=== PATIENT | female | born 1995 | race Caucasian/White ===

== ENCOUNTER 2016-09-13 17:30 | Inpatient (IN) | payer MEDICAID ==
[2016-09-13] VITALS (43 sets, daily range): BP systolic 105–123; BP diastolic 66–78; PULSE 64–92; RESP 16–18; TEMP 98; O2SAT 96–100
[~2016-09-13] VITALS: Ht 157.5 cm; Wt 54.9 kg
[~2016-09-13 17:30] MED LIST: ANAP550T PO; PERC5TAB12 PO; PREN0.01 PO; SENN1TAB11 PO
[2016-09-13 18:27] LABS: HEMATOCRIT 34.8 % (35.0-46.0); MEAN CELL VOLUME 86.4 FL (80.0-100.0); MEAN CORPUSCULAR HEMOGLOBIN 28.8 PG (27.0-34.0); MEAN CORPUSCULAR HGB CONC 33.3 % (32.0-36.0); PLATELET COUNT 149 TH/MM3 (150-450); RED BLOOD COUNT 4.03 MIL/MM3 (4.00-5.30); WHITE BLOOD COUNT 10.4 TH/MM3 (4.0-11.0)
[2016-09-13 18:35] LABS: HEMO FLAGS AUTO DIFF
[2016-09-13 18:46] LABS: CHLORIDE 104 MEQ/L (98-107); POTASSIUM 3.7 MEQ/L (3.5-5.1); SODIUM (NA) 138 MEQ/L (136-145)
[2016-09-13 18:49] LABS: ANION GAP 10 MEQ/L (5-15); BICARBONATE 23.6 MEQ/L (21.0-32.0)
[2016-09-13 18:50] LABS: BLOOD UREA NITROGEN 10 MG/DL (7-18)
[2016-09-13 18:52] LABS: ALT (GPT) 10 U/L (10-53)
[2016-09-13 18:53] LABS: AST (GOT) 12 U/L (15-37); GLOMERULAR FILTRATION RATE 140 ML/MIN (>89)
[2016-09-13 18:54] LABS: TOTAL BILIRUBIN ADULT 0.3 MG/DL (0.2-1.0)
[2016-09-13 18:55] LABS: EOSINOPHILS 1 % (0-4); NEUTROPHIL # MANUAL DIFF 7.6 TH/MM3 (1.8-7.7); POLYS (SEG NEUTROPHILS) 73 % (16-70); WBC DIFF SAMPLE 100
--- NOTE | 2016-09-13 18:55 | PD ---
HPI Chief Complaint: Related Problem Time Seen by Provider: 18:03 Travel History International Travel<30 days: No Contact w/Intl Traveler<30days: No Traveled to known affect area: No History of Present Illness HPI Is a 21-year-old woman presents to the emergency department complaining of bright red vaginal bleeding at 33 weeks. She is 4 para 2, 0, 1-1 previous miscarriage and 2 previous C-sections. Her was her distress and failure to descend, and the second one was for just repeat C- section. She is 33 weeks 5 days today, falls with Citlaly Sánchez jig worker. She states she was measuring small but ultrasound confirming normal size and her is been otherwise uncomplicated. They're planning for a C- section at term. She had an appointment today for an ultrasound which she states was unremarkable. She's been feeling the baby move normally. This afternoon she felt some fluid but when she checked she didn't see anything but then when she got home noticed a moderate amount of bright red blood coming from the vagina. She describes then bright red blood. She's had continued bleeding of thin bright red blood. She otherwise has been feeling generally well. No other complaints. History Past Medical History Narrative Medical 2 previous C-sections : 2 Para: 1 Social History Alcohol Use: No Tobacco Use: Yes (/ PPD) Allergies-Medications (Allergen,Severity, Reaction): Coded Allergies: No Known Allergies (Verified , 09/13/16) Reported Meds & Prescriptions Reported Meds & Active Scripts Active No Active Prescriptions or Reported Medications Review of Systems Except as stated in HPI: all other systems reviewed are Neg Physical Exam Narrative GENERAL: Well-appearing 21-year-old young woman. No acute distress. SKIN: Warm and dry. NECK: Trachea midline. No JVD. CARDIOVASCULAR: Regular rate and rhythm. No murmur appreciated. RESPIRATORY: No accessory muscle use. Clear to auscultation. Breath sounds equal bilaterally. GASTROINTESTINAL: Abdomen is soft, gravid, roughly consistent with dates. : Some bright red blood at the vaginal orifice. Speculum or internal exam deferred. MUSCULOSKELETAL: No obvious deformities. No edema. NEUROLOGICAL: Awake and alert. No obvious cranial nerve deficits. Motor grossly within normal limits. Normal speech. Data Data Last Documented VS Vital Signs Date Time Temp Pulse Resp B/P Pulse Ox O2 Delivery O2 Flow Rate FiO2 09/13/16 17:52 98.0 92 16 110/75 99 Orders Complete Blood Count With Diff (09/13/16 18:05) Comprehensive Metabolic Panel (09/13/16 18:05) Type And Screen (09/13/16 18:05) Iv Access Insert/Monitor (09/13/16 18:05) Ed Poc Ultrasound (09/13/16 ) Labs Laboratory Tests Test 09/13/16 18:08 White Blood Count 10.4 TH/MM3 Red Blood Count 4.03 MIL/MM3 Hemoglobin 11.6 GM/DL Hematocrit 34.8 % Mean Corpuscular Volume 86.4 FL Mean Corpuscular Hemoglobin 28.8 PG Mean Corpuscular Hemoglobin 33.3 % Concent Red Cell Distribution Width 12.0 % Platelet Count 149 TH/MM3 Mean Platelet Volume 8.8 FL CBC Comment AUTO DIFF Sodium Level 138 MEQ/L Potassium Level 3.7 MEQ/L Chloride Level 104 MEQ/L Carbon Dioxide Level 23.6 MEQ/L Anion Gap 10 MEQ/L Random Glucose 80 MG/DL Calcium Level 8.9 MG/DL Albumin 3.0 GM/DL [facility] Medical Decision Making Medical Screen Exam Complete: Yes Emergency Medical Condition: Yes Differential Diagnosis Placenta previa, abruption, cervicitis, other Narrative Course Medical decision making 21-year-old woman at 33 weeks 5 days presents with painless vaginal bleeding. No cramping. No leakage of fluid. Still feels baby moving normally. Concern for placenta previa. Internal exam deferred. Ultrasound shows some movement with good heart movement. I spoke with the OB hospitalist, Dr. Wood, who accepted the patient for emergent transfer. Diagnosis Primary Impression: Vaginal bleeding in Qualified Code: O46.93 - Vaginal bleeding in , third trimester Admitting Information Admitting Physician Requests: Admit Scripts No Active Prescriptions or Reported Meds Elia Landers MD Sep 13, 2016 18:55
[2016-09-13 18:56] LABS: ALKALINE PHOSPHATASE 138 U/L (45-117); PLATELET ESTIMATE SMEAR LOW (NORMAL); PLATELET MORPHOLOGY NORMAL (NORMAL); SCAN/DIFF FINAL DIFF MANUAL
[2016-09-13] MEDS ORDERED: LACTATED RINGER'S 1000 ML INJ 1,000 ML IV SCH ×2 (19:33→19:53)
[2016-09-13] MEDS ORDERED: MAGNESIUM SULFATE 40 GM PREMIX 1,000 ML IV SCH (19:53)
[2016-09-13] MEDS ORDERED: ONDANSETRON HCL 4 MG/2 ML VIAL IV PRN (20:00)
[2016-09-13] MEDS ORDERED: SODIUM CHLORIDE 0.9% FLUSH 5 ML FLUSH IV PRN (20:00)
[2016-09-13] MEDS ORDERED: CALCIUM GLUCONATE 10% 1 GM/10 ML VIAL IV PRN (20:00)
[2016-09-13] MEDS ORDERED: BETAMETHASONE SOD PHOS/ACETATE SUSP 30 MG/5 ML VIAL IM SCH (20:00)
[2016-09-13] MEDS ORDERED: MAGNESIUM SULFATE 4 GM PREMIX 100 ML IV ONE (20:00)
--- NOTE | 2016-09-13 20:07 | HHI.HP ---
HPI Chief Complaint Vaginal bleeding Date Seen: Sep 13, 2016 Travel History International Travel<30 Days: No Contact w/Intl Traveler<30Days: No Known Affected Area: No History of Present Illness HPI Patient is a 21-year-old white female previous 2 at 33 weeks seen by Citlaly Sánchez for care. She presents today complaining of vaginal bleeding beyond 5 PM today it's painless. Her baby is active. The bleeding was bright red and more than a period today. She denies rupture the membranes abdominal pain or other complication. Para: 2 : 4 : 1 History Obstetric History Obstetric History 2 C-sections and 1 miscarriage Past Surgical History Narrative Surgical 2 C-sections Family History Family History: Negative Social History Alcohol Use: No Tobacco Use: Yes Substance Abuse: No Allergies-Medications (Allergen,Severity, Reaction): Coded Allergies: No Known Allergies (Verified , 09/13/16) Home Meds Discontinued Reported Medications Oxycodone-Acetaminophen 5-325 mg (Percocet 5-325 mg)5 Mg/325 Mg Tab1 Tab PO Q6H PRN (PAIN) #20 TAB 07/07/13 Docusate Sod/Senna (Senna Plus 8.6-50 mg)1 Tab Tab1 Tab PO BID #30 TAB 07/07/13 Multivit/Min/Fol Ac/Iron/Pren ( Vit ( Plus)) Tab1 Tab PO DAILY CONTINUE WHILE OR PUMPING. IF BOTTLE FEEDING CONTINUE FOR ONE MONTH 07/07/13 Naproxen Sodium (Anaprox Ds)550 Mg [id number] Mg PO BID PRN (PAIN) #30 TAB 07/07/13 Review of Systems General / Constitutional: No: Fever, Weight Gain, Chills, Other Eyes: No: Diploplia, Blurred Vision, Visual changes, Pain, Photophobia HENT: No: Headaches, Vertigo, Lightheadedness Cardiovascular: No: Irregular Rhythm, Chest Pain or Discomfort, Palpitations, Tachycardia, Syncope, Varicosities, Edema, Cyanosis Respiratory: No: Cough, Short of Breath, Other Gastrointestinal: No: Nausea, Vomiting, Diarrhea Genitourinary: Vaginal Bleeding, No: Decreased Urinary Output, Oliguria Musculoskeletal: No: Limited ROM, Weakness, Cramping, Edema, Pain Skin: No Rash, No Itching, No Dryness, No Lumps, No Change in Pigmentation, No Change in Nails, No Alopecia, No Lesions Neurologic: No: Weakness, Dizziness, Syncope, Focal Abnormalities, Coordination Problem, Headache, Slurred Speech, Seizures Psychiatric: No: Depression, Suicidal Ideations, Homicidal Ideation Endocrine: No: Heat Intolerance, Cold Intolerance, Polydipsia, Polyuria, Other Physical Exam Vital Signs Date Time Temp Pulse Resp B/P Pulse Ox O2 Delivery O2 Flow Rate FiO2 09/13/16 18:49 108/75 100 09/13/16 17:52 98.0 92 16 110/75 99 Narrative GENERAL: Well-nourished, well-developed patient. SKIN: Warm and dry. HEAD: Normocephalic and atraumatic. EYES: No scleral icterus. No injection or drainage. ENT: No nasal drainage noted. Mucous membranes pink. Airway patent. NECK: Supple, trachea midline. No JVD. CARDIOVASCULAR: Regular rate and rhythm without murmurs, gallops, or rubs. RESPIRATORY: Breath sounds equal bilaterally. No accessory muscle use. BREASTS: Bilateral exam showed no masses , no retractions, no nipple discharge. ABDOMEN/GI: Abdomen soft, non-tender, bowel sounds present, no rebound, no guarding Gravid to [30-] weeks size Fundal Height: [-30] GENITOURINARY: External Genitalia: intact and normal in appearance, speculum exam was done as the patient's rectus placed in the vagina and opened blood just filled up the Speculum I evacuated that blood and there was still some blood in the posterior fornix cannot visualize the cervix well that time. Did not do a digital exam until until had finished her ultrasound. BUS glands: [-] Cervix: [-] Dilatation: [1-] Effacement: [50-] Station: [-3] Presentation: [vtx-] Membranes: [intact ] Uterine Contractions: [q 2 min-] FHT's: Category: [-1] Baseline: [133-] Reactive: [yes-] Variability: [mod-] Decels: [none-] EXTREMITIES: No cyanosis or edema. BACK: Nontender without obvious deformity. No CVA tenderness. NEUROLOGICAL: Awake and alert. Motor and sensory grossly within normal limits. Five out of 5 muscle strength in all muscle groups. Normal speech. Data Data Orders Complete Blood Count With Diff (09/13/16 18:05) Comprehensive Metabolic Panel (09/13/16 18:05) Type And Screen (09/13/16 18:05) Iv Access Insert/Monitor (09/13/16 18:05) Ed Poc Ultrasound (09/13/16 ) Vital Signs (Adult) .ON ADMISSION (09/13/16 19:33) ^ Labor Status (09/13/16 19:33) Urinalysis - C+S If Indicated (09/13/16 19:33) Cbc No Diff, Includes Plts (09/13/16 19:33) Kleihauer Betke ( Hgb) (09/13/16 19:33) Lactated Ringer's 1000 Ml Inj (Lr 1000 M (09/13/16 19:33) Betamethasone Inj (Celestone Soluspan In (09/13/16 20:00) Ob/Psych Drug Screen, Urine (09/13/16 19:33) Ob Poc Ultrasound (09/13/16 ) Ob (2e) Additional Admit Info (09/13/16 19:54) Admit To Inpatient (09/13/16 ) Vital Signs (Adult) Q4H (09/13/16 19:53) Activity Bed Rest (09/13/16 19:53) Intake + Output MG.QSHIFT (09/13/16 19:53) ^ Heart CONTINUOUS (09/13/16 19:53) Diet Npo (09/14/16 Breakfast) Lactated Ringer's 1000 Ml Inj (Lr 1000 M (09/13/16 19:53) Sodium Chloride 0.9% Flush (Ns Flush) (09/13/16 20:00) Sodium Chloride 0.9% Flush (Ns Flush) (09/13/16 21:00) Magnesium Sulfate 40 Gm Premix (Magnesiu (09/13/16 19:53) Cefazolin Inj (Ancef Inj) (09/13/16 20:00) Calcium Gluconate Inj (Calcium Gluconate (09/13/16 20:00) Ondansetron Inj (Zofran Inj) (09/13/16 20:00) Magnesium Sulfate 4 Gm Premix (Magnesium (09/13/16 20:00) Drug Screen, Random Urine (09/13/16 19:53) Prothrombin Time / Inr (Pt) (09/13/16 19:57) Act Partial Throm Time (Ptt) (09/13/16 19:57) Fibrinogen (09/13/16 19:57) Labs Bedside ultrasound done by me shows a vertex female fetus with normal anatomy estimated weight of 1662 g or 3 lbs. 11 oz. The placenta is anterior and left-sided grade 2 there is no placenta previa, normal amniotic fluid noted, baby is active Laboratory Tests Test 09/13/16 18:08 White Blood Count 10.4 Red Blood Count 4.03 Hemoglobin 11.6 Hematocrit 34.8 Mean Corpuscular Volume 86.4 Mean Corpuscular Hemoglobin 28.8 Mean Corpuscular Hemoglobin 33.3 Concent Red Cell Distribution Width 12.0 Platelet Count 149 Mean Platelet Volume 8.8 CBC Comment AUTO DIFF Differential Total Cells 100 Counted Neutrophils % (Manual) 73 Lymphocytes % 23 Monocytes % 3 Eosinophils % 1 Neutrophils # (Manual) 7.6 Differential Comment FINAL DIFF MANUAL Platelet Estimate LOW Platelet Morphology Comment NORMAL Red Cell Morphology Comment NORMAL Sodium Level 138 Potassium Level 3.7 Chloride Level 104 Carbon Dioxide Level 23.6 Anion Gap 10 Blood Urea Nitrogen 10 Creatinine 0.54 Estimat Glomerular Filtration 140 Rate Random Glucose 80 Calcium Level 8.9 Total Bilirubin 0.3 Aspartate Amino Transf 12 (AST/SGOT) Alanine Aminotransferase 10 (ALT/SGPT) Alkaline Phosphatase 138 Total Protein 6.9 Albumin 3.0 Blood Type O POSITIVE Antibody Screen NEGATIVE Assessment/Plan Assessment and Plan This patient is a 21-year-old white female G3 for P2 previous 2, 33 weeks who presents with red vaginal bleeding. Denies pain or rupture the membranes this time. Baby is active heart rate tracing is reactive and she is prema every 1-2 minutes. Speculum exam the vagina was full of dark red blood area and ultrasound was done prior to digital exam which shows a female fetus in vertex presentation at 1662 g or 3 lbs. 11 oz. and a day gestational age of 31 weeks and 5 day size. After confirming she had no previous exams cervical exam was not she is using cervix is 1 cm 50% and -3 vertex. Plan to admit the patient and the attempt magnesium tocolyse this as it contractions can be decreased to the bleeding will then decrease to the point that she can remain for an indeterminate time will quitting give steroids IM and mag sulfate IV tocolyse this. The patient has another significant bleed then we'll proceed with repeat section for delivery Medardo Wood II, MD Sep 13, 2016 20:07
[2016-09-13] MEDS ORDERED: SODIUM CHLORIDE 0.9% FLUSH 5 ML FLUSH IV SCH (21:00)
--- NOTE | 2016-09-13 22:15 | PD.LABORPN ---
Subjective Subjective 32 wks 3 rd Trim Bleeding on Mag So4 for toco but still CTXing q3 -5 min on 2 gm/ hr cx same /50/-3/vtx IM steroids given Imp- probable marginal abruption with PTL threatened Plan - up mag to 3 gm /hr , if cx changes or bleeding noted will move to RCS Objective Vital Signs Vital Signs Date Time Temp Pulse Resp B/P Pulse Ox O2 Delivery O2 Flow Rate FiO2 09/13/16 21:50 66 09/13/16 21:45 73 112/74 09/13/16 21:35 66 09/13/16 21:30 65 18 109/72 09/13/16 21:15 64 09/13/16 21:15 112/73 09/13/16 21:00 18 09/13/16 20:55 66 09/13/16 20:50 68 09/13/16 20:45 75 117/76 09/13/16 20:40 80 09/13/16 20:40 106/78 09/13/16 20:35 84 115/67 09/13/16 20:31 83 113/66 09/13/16 20:30 68 09/13/16 20:28 18 09/13/16 20:25 72 117/76 09/13/16 20:20 68 105/75 09/13/16 20:18 67 108/74 09/13/16 18:49 108/75 100 09/13/16 17:52 98.0 92 16 110/75 99 Objective Pelvic Exam: Cervix: [-] Dilatation: [-] 1 Effacement: [-50] Station: [-3] Presentation: [vtx-] Membranes: [intact ] Uterine Contractions: [q 3-5 min -] FHT's: Category: [1-] Baseline: [133-] Reactive: [-yes] Variability: [-mod] Decels: [none-] Medardo Wood II, MD Sep 13, 2016 22:15
[2016-09-13 22:38] LABS: APTT (PATIENT) 29.3 SEC (24.3-30.1); INTERNATIONAL NORMALIZED RATIO 0.9 RATIO
[2016-09-14] VITALS (52 sets, daily range): BP systolic 85–119; BP diastolic 43–78; PULSE 18–92; RESP 16–18; TEMP 96.2–98.5; O2SAT 97–100
[2016-09-14 02:06] LABS: HEMATOCRIT 33.3 % (35.0-46.0); MEAN CELL VOLUME 87.4 FL (80.0-100.0); MEAN CORPUSCULAR HEMOGLOBIN 29.6 PG (27.0-34.0); MEAN CORPUSCULAR HGB CONC 33.9 % (32.0-36.0); PLATELET COUNT 140 TH/MM3 (150-450); RED BLOOD COUNT 3.81 MIL/MM3 (4.00-5.30); RED CELL DISTRIBUTION WIDTH 13.3 % (11.6-17.2); REVIEW FLAG FINAL; WHITE BLOOD COUNT 13.3 TH/MM3 (4.0-11.0)
[2016-09-14] MEDS ORDERED: CITRIC ACID-SODIUM CITRATE LIQ 30 ML UDC ONE (03:24)
[2016-09-14] MEDS ORDERED: OXYTOCIN 10 UNIT/ML AMP ONE (03:35)
[2016-09-14] MEDS ORDERED: DICLOFENAC SODIUM 37.5 MG/ML VIAL IV PUSH ONE (03:35)
[2016-09-14] MEDS ORDERED: ONDANSETRON HCL 4 MG/2 ML VIAL ONE (04:19)
[2016-09-14] MEDS ORDERED: MORPHINE SULFATE PF 5 MG/10 ML VIAL ONE (04:19)
[2016-09-14 04:22] LABS: BLOOD GAS BASE EXCESS -3.3 mmol/L (-2-2); BLOOD GAS O2 HGB SATURATION 8 % (90-100); CORD BLOOD GAS HCO3 22 mmol/L (21-29); CORD BLOOD GAS PCO2 49 mmHG (34-78); CORD BLOOD GAS PH 7.28 (7.14-7.42); CORD BLOOD GAS PO2 9 mmHG (3.0-40.0); DRAW SITE CORD BLOOD; STAT YES
[2016-09-14] MEDS ORDERED: KETOROLAC TROMETHAMINE 60 MG/2 ML (IM) VIAL IM PRN (04:45)
[2016-09-14] MEDS ORDERED: oxyCODONE/ACETAMINOPHEN 5 MG/325 MG TAB PO PRN (04:45)
[2016-09-14] MEDS ORDERED: OXYTOCIN 30 UNITS-500ML PREMIX 500 ML IV ONE (04:45)
[2016-09-14] MEDS ORDERED: ONDANSETRON HCL 4 MG/2 ML VIAL IV PUSH PRN (04:45)
[2016-09-14] MEDS ORDERED: ACETAMINOPHEN 325 MG TAB PO PRN ×2 (04:45→18:15)
[2016-09-14] MEDS ORDERED: SODIUM CHLORIDE 0.9% FLUSH 5 ML FLUSH IV PRN (04:45)
[2016-09-14] MEDS ORDERED: ZOLPIDEM TARTRATE 5 MG TAB PO PRN (04:45)
[2016-09-14] MEDS ORDERED: LACTATED RINGER'S 1000 ML INJ 1,000 ML IV ONE (05:15)
[2016-09-14] MEDS ORDERED: PHENYLEPHRINE HCL 10 MG/ML VIAL IV ONE (05:15)
--- NOTE | 2016-09-14 05:20 | MP ---
cc: CHANG WOOD MD DATE OF SURGERY 09/14/2016 PREOPERATIVE DIAGNOSES Placental abruption. labor. Previous section. POSTOPERATIVE DIAGNOSES Placental abruption. labor. Previous section. PROCEDURE PERFORMED Low transverse section repeat. SURGEON Chang Wood MD SUBASSEMBLER Dr. Cowan, [facility] ANESTHESIA Spinal. PREOP NOTE The patient is a 21-year-old female, at 33 weeks, previous x 2 with third trimester bleeding, apparent placental abruption and labor. She had magnesium tocolysis that eventually was unsuccessful and her cervix changed to 3 cm and 80% and the patient requested repeat so that is what we moved towards. PROCEDURE The patient was taken to the operating room and placed in the supine position on the operating room table. After adequate spinal anesthesia was administered, she was prepped and draped for abdominal surgery. A previous Pfannenstiel incision was excised out and the incision taken to the fascia, sharply the fascia was dissected laterally and then off the rectus muscle, the peritoneal cavity entered sharply and the incision extended superiorly and inferiorly. The bladder blade was placed in the lower edge of the incision, the visceral peritoneum reflected off the lower uterine segment and placed under the bladder blade. A transverse hysterotomy was made and extended bluntly bilaterally and a female , weight 1880 grams, Apgars of 9 and 9 was delivered at 3:59 a.m. without complication. Apparent at the time of hysterotomy was a blood clot that protruded through the incision and, once the placenta was delivered, it basically came out almost on its own with no manual manipulation and it could be seen about a 5-10% marginal abruption apparent on the placenta, just enough abruption to cause her to go into labor but not enough to cause compromise. The placenta was sent to pathology. Cord blood was obtained. The cord pH was 7.28. The baby was resuscitated by the neonatology staff. The hysterotomy was closed with a running layer of 0 chromic followed by imbricating suture of the same. Hemostasis was achieved and the bladder reapproximated with 2-0 Vicryl in a running suture. The uterus was elevated and blood suctioned from the cul-de-sac and gutters and the uterus was replaced in the peritoneal cavity. The parietal peritoneum was closed in a running layer of 2-0 Vicryl. The muscle was reapproximated with a stick tie of Vicryl. The fascia was then closed in a running layer of 0 Vicryl. The subcutaneous tissues were reapproximated with running 0 plain suture and the skin closed with 3-0 Monocryl subcuticular stitch. Pressure dressing was applied. Estimated blood loss was 500 cc. There were no complications. Sponge, needle and instrument counts were correct x 2 and the patient was taken to Recovery and the baby to the NICU. MD MILLIE Jay/SSB /4:44 AM /5:04 AM
[2016-09-14 06:17] LABS: BACTERIA, URINE RARE /hpf; BLOOD, URINE LARGE (NEG); COMMENT (UR) CULTURE INDICATED; CULTURE IF INDICATED CULTURE INDICATED; GLUCOSE,URINE NEG (NEG); GRANULAR CAST, URINE 2 /lpf; HYALINE CAST, URINE 7 /lpf (RARE); KETONE, URINE 80 mg/dL (NEG); MUCUS URINE FEW /lpf (OCC); NITRITE,URINE NEG (NEG); PH, URINE 5.5 (5.0-8.5); SQUAMOUS EPITHELIAL CELL URINE 2 /hpf (0-5); TRANSITIONAL EPI CELLS, URINE <1 /hpf; URINE COLOR YELLOW (YELLW/STRAW)
[2016-09-14 06:22] LABS: AMPHETAMINE, URINE NEG (NEG); BARBITURATES, URINE NEG (NEG); COCAINE, URINE NEG (NEG)
[2016-09-14] MEDS ORDERED: OXYTOCIN 30 UNITS-500ML PREMIX 500 ML ONE (06:22)
[2016-09-14] MEDS ORDERED: EPIDURAL-DIPHENHYDRAMINE HCL 50 MG CAP PO PRN (07:45)
[2016-09-14] MEDS ORDERED: EPIDURAL-NALOXONE HCL 0.4 MG/ML AMP IV PRN (07:45)
[2016-09-14] MEDS ORDERED: EPIDURAL-DIPHENHYDRAMINE HCL 50 MG/ML VIAL IV PUSH PRN (07:45)
[2016-09-14] MEDS ORDERED: EPIDURAL-DO NOT ADMINISTER ANTICOAGULANTS XX PRN (07:45)
[2016-09-14] MEDS ORDERED: EPIDURAL-NO SYSTEMIC NARCOTICS XX PRN (07:45)
[2016-09-14] MEDS ORDERED: LACTATED RINGER'S 1000 ML INJ 1,000 ML IV SCH (09:38)
[2016-09-14 11:02] LABS: HEMATOCRIT 23.7 % (35.0-46.0); REVIEW FLAG FINAL
[2016-09-14 13:18] LABS: AUTOMATED NEUTROPHIL # 13.6 TH/MM3 (1.8-7.7); BASOPHIL % 0.1 % (0.0-2.0); HEMATOCRIT 24.7 % (35.0-46.0); HEMO FLAGS DIFF FINAL; LYMPH % 5.5 % (9.0-44.0); LYMPHOCYTE # 0.8 TH/MM3 (1.0-4.8); MEAN CELL VOLUME 86.9 FL (80.0-100.0); MEAN CORPUSCULAR HEMOGLOBIN 29.8 PG (27.0-34.0); MEAN CORPUSCULAR HGB CONC 34.3 % (32.0-36.0); MONO % 4.4 % (0.0-8.0); PLATELET COUNT 123 TH/MM3 (150-450); RED BLOOD COUNT 2.85 MIL/MM3 (4.00-5.30); WHITE BLOOD COUNT 15.1 TH/MM3 (4.0-11.0)
[2016-09-14] MEDS: DICLOFENAC SODIUM 37.5 MG/ML VIAL IV PUSH SCH ×2 (13:19→21:15)
[2016-09-14 13:26] LABS: INTERNATIONAL NORMALIZED RATIO 0.9 RATIO; PROTHROMBIN TIME - PATIENT 9.9 SEC (9.8-11.6)
[2016-09-14] MEDS ORDERED: OXYTOCIN 30 UNITS-500ML PREMIX 500 ML IV PRN (14:45)
[2016-09-14 16:36] LABS: HEMATOCRIT 21.3 % (35.0-46.0); MEAN CELL VOLUME 87.1 FL (80.0-100.0); MEAN CORPUSCULAR HEMOGLOBIN 29.7 PG (27.0-34.0); MEAN CORPUSCULAR HGB CONC 34.1 % (32.0-36.0); PLATELET COUNT 124 TH/MM3 (150-450); RED BLOOD COUNT 2.45 MIL/MM3 (4.00-5.30); RED CELL DISTRIBUTION WIDTH 12.6 % (11.6-17.2); REVIEW FLAG FINAL; WHITE BLOOD COUNT 13.6 TH/MM3 (4.0-11.0)
[2016-09-14 16:47] LABS: APTT (PATIENT) 28.9 SEC (24.3-30.1); INTERNATIONAL NORMALIZED RATIO 0.9 RATIO
[2016-09-14] MEDS ORDERED: diphenhydrAMINE HCL 25 MG CAP PO PRN (18:15)
[2016-09-14] MEDS ORDERED: SODIUM CHLOR 0.9% 250 ML INJ 250 ML IV ONE (18:15)
--- NOTE | 2016-09-14 18:15 | HHI.OB ---
Subjective Post Day: 1 Remarks Patient is status post repeat section yesterday at 33-34 weeks gestation due to a placental abruption. Patient had initially presented to the [place] emergency department due to vaginal bleeding. She was then transferred here to [place] and was observed to continue to bleed and then underwent a repeat section due to vaginal bleeding. A placental abruption was noted intraoperatively. Earlier today patient became dizzy and had a syncopal episode. Since then she has felt improved and is able to eat and drink without any issues. She does not complain of any increased abdominal pain or increased abdominal girth. She did receive a 2 unit blood transfusion postop from her first delivery. Objective Vitals/I&O Vital Signs Date Time Temp Pulse Resp B/P Pulse Ox O2 Delivery O2 Flow Rate FiO2 09/14/16 17:00 72 90/55 09/14/16 15:57 65 09/14/16 15:55 98.3 18 18 85/43 09/14/16 11:00 98.1 62 18 99/58 09/14/16 07:00 97.6 09/14/16 06:59 18 09/14/16 06:59 71 103/57 09/14/16 06:15 108/58 09/14/16 06:15 97.8 09/14/16 06:13 79 16 99 09/14/16 06:00 76 16 119/69 99 09/14/16 05:45 73 16 110/53 99 09/14/16 05:30 96.5 99 09/14/16 05:30 79 16 102/56 09/14/16 05:15 105/56 09/14/16 05:13 92 16 98 09/14/16 05:00 97 09/14/16 05:00 73 16 104/54 09/14/16 04:50 79 16 95/49 09/14/16 04:50 96.2 98 09/14/16 03:15 117/65 100 09/14/16 03:15 67 09/14/16 03:10 69 100 09/14/16 03:05 74 100 09/14/16 03:00 72 16 102/57 100 09/14/16 02:55 73 100 09/14/16 02:50 72 100 09/14/16 02:45 16 09/14/16 02:45 79 107/57 100 2/24/17 02:35 64 99 09/14/16 02:30 71 103/55 100 09/14/16 02:25 71 100 09/14/16 02:20 71 100 09/14/16 02:15 75 111/71 100 09/14/16 02:00 72 09/14/16 02:00 115/62 100 09/14/16 01:59 16 09/14/16 01:50 83 100 09/14/16 01:45 73 110/68 99 09/14/16 01:35 83 99 09/14/16 01:30 16 114/62 99 09/14/16 01:30 65 09/14/16 01:25 66 99 09/14/16 01:20 64 99 09/14/16 01:15 69 115/77 99 09/14/16 01:00 70 117/60 99 09/14/16 00:59 16 09/14/16 00:55 68 99 09/14/16 00:50 77 99 09/14/16 00:45 68 117/70 99 09/14/16 00:40 68 99 09/14/16 00:35 73 99 09/14/16 00:30 73 16 114/66 09/14/16 00:25 76 99 09/14/16 00:20 69 99 09/14/16 00:15 77 111/68 99 09/14/16 00:15 68 09/14/16 00:05 73 100 09/14/16 00:00 76 09/14/16 00:00 99 09/14/16 00:00 78 119/78 09/14/16 00:00 97.4 09/13/16 23:58 16 09/13/16 23:55 99 09/13/16 23:55 76 09/13/16 23:50 99 09/13/16 23:50 76 09/13/16 23:45 75 115/69 09/13/16 23:45 99 09/13/16 23:30 77 16 118/74 17 23:25 79 100 09/13/16 23:20 76 99 09/13/16 23:15 73 115/71 09/13/16 23:15 99 09/13/16 23:15 99 09/13/16 23:00 18 09/13/16 23:00 70 117/74 09/13/16 22:55 100 09/13/16 22:55 100 09/13/16 22:55 72 09/13/16 22:50 100 09/13/16 22:50 100 09/13/16 22:50 67 09/13/16 22:45 99 09/13/16 22:45 67 115/68 09/13/16 22:45 99 09/13/16 22:40 69 09/13/16 22:35 71 09/13/16 22:30 71 117/75 09/13/16 22:25 99 09/13/16 22:25 69 09/13/16 22:25 99 09/13/16 22:20 100 09/13/16 22:20 71 09/13/16 22:20 100 09/13/16 22:15 100 09/13/16 22:15 68 123/72 09/13/16 22:15 100 09/13/16 22:10 68 09/13/16 22:05 70 09/13/16 22:00 70 09/13/16 22:00 18 09/13/16 22:00 113/66 09/13/16 21:55 65 100 09/13/16 21:55 65 100 09/13/16 21:50 99 09/13/16 21:50 66 09/13/16 21:50 99 09/13/16 21:45 99 09/13/16 21:45 73 112/74 09/13/16 21:45 99 09/13/16 21:35 66 09/13/16 21:30 65 18 109/72 09/13/16 21:25 66 99 09/13/16 21:25 66 99 09/13/16 21:20 66 98 09/13/16 21:20 66 98 09/13/16 21:15 98 09/13/16 21:15 64 09/13/16 21:15 98 09/13/16 21:15 112/73 09/13/16 21:00 18 09/13/16 20:55 66 09/13/16 20:55 97 09/13/16 20:55 97 09/13/16 20:50 97 09/13/16 20:50 97 09/13/16 20:50 68 09/13/16 20:45 96 09/13/16 20:45 75 117/76 09/13/16 20:45 96 09/13/16 20:40 80 09/13/16 20:40 106/78 09/13/16 20:35 84 115/67 09/13/16 20:31 83 113/66 09/13/16 20:30 68 09/13/16 20:28 18 09/13/16 20:25 72 117/76 09/13/16 20:25 98 09/13/16 20:25 98 09/13/16 20:20 68 105/75 09/13/16 20:20 99 09/13/16 20:20 99 09/13/16 20:18 67 108/74 09/13/16 18:49 108/75 100 Other Results Laboratory Tests Test 09/13/16 09/13/16 09/13/16 09/14/16 01:55 18:08 20:00 01:55 White Blood Count 13.3 TH/MM3 10.4 TH/MM3 Red Blood Count 3.81 MIL/MM3 4.03 MIL/MM3 Hemoglobin 11.3 GM/DL 11.6 GM/DL Hematocrit 33.3 % 34.8 % Mean Corpuscular Volume 87.4 FL 86.4 FL Mean Corpuscular Hemoglobin 29.6 PG 28.8 PG Mean Corpuscular Hemoglobin 33.9 % 33.3 % Concent Red Cell Distribution Width 13.3 % 12.0 % Platelet Count 140 TH/MM3 149 TH/MM3 Mean Platelet Volume 9.6 FL 8.8 FL Hemoglobin F () 0.0 % CBC Comment AUTO DIFF Differential Total Cells 100 Counted Neutrophils % (Manual) 73 % Lymphocytes % 23 % Monocytes % 3 % Eosinophils % 1 % Neutrophils # (Manual) 7.6 TH/MM3 Differential Comment FINAL DIFF MANUAL Platelet Estimate LOW Platelet Morphology Comment NORMAL Red Cell Morphology Comment NORMAL Sodium Level 138 MEQ/L Potassium Level 3.7 MEQ/L Chloride Level 104 MEQ/L Carbon Dioxide Level 23.6 MEQ/L Anion Gap 10 MEQ/L Blood Urea Nitrogen 10 MG/DL Creatinine 0.54 MG/DL Estimat Glomerular Filtration 140 ML/MIN Rate Random Glucose 80 MG/DL Calcium Level 8.9 MG/DL Total Bilirubin 0.3 MG/DL Aspartate Amino Transf 12 U/L (AST/SGOT) Alanine Aminotransferase 10 U/L (ALT/SGPT) Alkaline Phosphatase 138 U/L Total Protein 6.9 GM/DL Albumin 3.0 GM/DL Blood Type O POSITIVE Antibody Screen NEGATIVE Prothrombin Time 10.0 SEC Prothromb Time International 0.9 RATIO Ratio Activated Partial 29.3 SEC Thromboplast Time Fibrinogen 365 mg/dL Magnesium Level 8.6 MG/DL Test 09/14/16 09/14/16 09/14/16 09/14/16 03:59 05:25 10:14 12:25 Blood Gas Puncture Site CORD BLOOD Blood Gas Base Excess -3.3 mmol/L Blood Gas Oxygen Saturation 8 % Cord Blood HCO3 22 mmol/L Cord Arterial Blood pH 7.28 Cord Arterial Blood PCO2 49 mmHG Cord Arterial Blood PO2 9 mmHG Urine Color YELLOW Urine Turbidity HAZY Urine pH 5.5 Urine Specific [place] 1.017 Urine Protein TRACE mg/dL Urine Glucose (UA) NEG mg/dL Urine Ketones 80 mg/dL Urine Occult Blood LARGE Urine Nitrite NEG Urine Bilirubin NEG Urine Urobilinogen LESS THAN 2.0 MG/DL Urine Leukocyte Esterase LARGE Urine RBC /hpf Urine WBC 29 /hpf Urine Squamous Epithelial 2 /hpf Cells Urine Transitional Epithelial <1 /hpf Cells Urine Bacteria RARE /hpf Urine Hyaline Casts 7 /lpf Urine Granular Casts 2 /lpf Urine Mucus FEW /lpf Microscopic Urinalysis Comment CULTURE INDICATED Urine Opiates Screen POS Urine Barbiturates Screen NEG Urine Amphetamines Screen NEG Urine Benzodiazepines Screen NEG Urine Cocaine Screen NEG Urine Cannabinoids Screen POS Hemoglobin 8.1 GM/DL 8.5 GM/DL Hematocrit 23.7 % 24.7 % White Blood Count 15.1 TH/MM3 Red Blood Count 2.85 MIL/MM3 Mean Corpuscular Volume 86.9 FL Mean Corpuscular Hemoglobin 29.8 PG Mean Corpuscular Hemoglobin 34.3 % Concent Red Cell Distribution Width 13.0 % Platelet Count 123 TH/MM3 Mean Platelet Volume 9.8 FL Neutrophils (%) (Auto) 90.0 % Lymphocytes (%) (Auto) 5.5 % Monocytes (%) (Auto) 4.4 % Eosinophils (%) (Auto) 0.0 % Basophils (%) (Auto) 0.1 % Neutrophils # (Auto) 13.6 TH/MM3 Lymphocytes # (Auto) 0.8 TH/MM3 Monocytes # (Auto) 0.7 TH/MM3 Eosinophils # (Auto) 0.0 TH/MM3 Basophils # (Auto) 0.0 TH/MM3 CBC Comment DIFF FINAL Differential Comment Prothrombin Time 9.9 SEC Prothromb Time International 0.9 RATIO Ratio Test 09/14/16 16:26 White Blood Count 13.6 TH/MM3 Red Blood Count 2.45 MIL/MM3 Hemoglobin 7.3 GM/DL Hematocrit 21.3 % Mean Corpuscular Volume 87.1 FL Mean Corpuscular Hemoglobin 29.7 PG Mean Corpuscular Hemoglobin 34.1 % Concent Red Cell Distribution Width 12.6 % Platelet Count 124 TH/MM3 Mean Platelet Volume 9.7 FL Prothrombin Time 10.0 SEC Prothromb Time International 0.9 RATIO Ratio Activated Partial 28.9 SEC Thromboplast Time Objective Remarks GENERAL: Well-nourished, well-developed patient. CARDIOVASCULAR: Regular rate and rhythm without murmurs, gallops, or rubs. RESPIRATORY: Breath sounds equal bilaterally. No accessory muscle use. ABDOMEN/GI: Abdomen soft, non-tender. Fundus: Firm, non-tender at umbilicus. Incision dressing is dry. GENITOURINARY: Light to moderate bleeding. Consistent with normal lochia EXTREMITIES: No cyanosis or edema, non-tender, without signs of DVT. Medications and IVs Current Medications Medications (Trade) Dose Ordered Sig/Deanna Route Start Time Stop Time Status Last Admin (NS Flush) 2 ml BID IV 09/14/16 09:00 (NS Flush) 2 ml UNSCH PRN IV 09/14/16 04:45 (Tylenol) 650 mg Q6H PRN PO 09/14/16 04:45 (Toradol Inj) 30 mg Q6H PRN IM 09/14/16 04:45 09/15/16 04:44 (Percocet 5-325 Mg) 1 tab Q4H PRN PO 09/14/16 04:45 (Percocet 5-325 Mg) 2 tab Q4H PRN PO 09/14/16 04:45 (Ambien) 5 mg HS PRN PO 09/14/16 04:45 (M-M-R Ii Inj) 0.5 ml ONCE ONCE SQ 09/15/16 16:00 09/15/16 16:01 (Boostrix Inj) 0.5 ml ONCE ONCE IM 09/15/16 16:00 09/15/16 16:01 (Zofran Inj) 4 mg Q6H PRN IV PUSH 09/14/16 04:45 Miscellaneous Information NO SYSTEMIC NARCOTICS TO BE GIVEN FO... UNSCH PRN XX 09/14/16 07:45 09/15/16 07:44 (Narcan Inj) 0.4 mg UNSCH PRN IV 09/14/16 07:45 09/15/16 07:44 (Benadryl Inj) 25 mg Q6H PRN IV PUSH 09/14/16 07:45 09/15/16 07:44 (Benadryl) 50 mg Q6H PRN PO 09/14/16 07:45 09/15/16 07:44 09/14/16 08:49 Miscellaneous Information ALL NURSING DEPARTMENTS UNSCH PRN XX 09/14/16 07:45 09/15/16 07:44 (Dyloject Inj) 37.5 mg Q8H IV PUSH 09/14/16 12:00 09/14/16 20:01 09/14/16 13:19 Assessment/Plan Assessment and Plan Patient with postoperative anemia most likely secondary to preoperative and intraoperative blood loss. Syncopal episode earlier today with hypotension. We'll transfuse 2 units of packed red blood cells. Exam today is benign no signs of intra-abdominal hemorrhage Oumou Bass MD Sep 14, 2016 18:15
[2016-09-14] MEDS: SODIUM CHLORIDE 0.9% FLUSH 5 ML FLUSH IV SCH (21:15)
[2016-09-15 00:40] VITALS: BP 87/51; PULSE 52; RESP 16; TEMP 97.7
[2016-09-15 00:55] VITALS: BP 92/50; PULSE 64; RESP 16; TEMP 97.7
[2016-09-15 05:52] LABS: HEMATOCRIT 29.1 % (35.0-46.0); MEAN CELL VOLUME 87.7 FL (80.0-100.0); MEAN CORPUSCULAR HEMOGLOBIN 29.3 PG (27.0-34.0); MEAN CORPUSCULAR HGB CONC 33.5 % (32.0-36.0); PLATELET COUNT 110 TH/MM3 (150-450); RED BLOOD COUNT 3.32 MIL/MM3 (4.00-5.30); RED CELL DISTRIBUTION WIDTH 13.3 % (11.6-17.2); REVIEW FLAG FINAL; WHITE BLOOD COUNT 12.2 TH/MM3 (4.0-11.0)
--- NOTE | 2016-09-15 07:29 | HHI.OB ---
Subjective Remarks 21 year old POD 1 after for placental abruption. She had post- operative symptomatic anemia likely secondary to pre-op and operative blood loss with placental abruption. She is status post 2 units of PRBC. Hemoglobin increased from 7.3 to 9.8 after transfusion. This morning she is asymptomatic. She is no longer lightheaded. Pain is well controlled. She is ambulating. Lochia is the amount of a menstrual period. (Aguila Chisholm MD R2) Objective Vitals/I&O Vital Signs Date Time Temp Pulse Resp B/P Pulse Ox O2 Delivery O2 Flow Rate FiO2 09/15/16 00:55 92/50 09/15/16 00:55 97.7 64 16 09/15/16 00:55 97.7 64 16 92/50 09/15/16 00:40 97.7 52 16 87/51 09/15/16 00:40 97.7 52 16 87/51 09/14/16 22:15 98.5 64 16 91/49 09/14/16 22:15 98.5 64 16 91/49 09/14/16 22:00 97.9 09/14/16 22:00 16 09/14/16 22:00 56 88/55 09/14/16 22:00 97.9 56 16 88/55 09/14/16 19:00 97.5 59 18 93/62 09/14/16 17:00 72 90/55 09/14/16 15:57 65 09/14/16 15:55 98.3 18 18 85/43 09/14/16 11:00 98.1 62 18 99/58 (Aguila Chisholm MD R2) Result Diagram: 09/15/16 0513 09/13/16 1808 Other Results Laboratory Tests Test 09/13/16 09/13/16 09/13/16 09/14/16 01:55 18:08 20:00 01:55 White Blood Count 13.3 TH/MM3 10.4 TH/MM3 Red Blood Count 3.81 MIL/MM3 4.03 MIL/MM3 Hemoglobin 11.3 GM/DL 11.6 GM/DL Hematocrit 33.3 % 34.8 % Mean Corpuscular Volume 87.4 FL 86.4 FL Mean Corpuscular Hemoglobin 29.6 PG 28.8 PG Mean Corpuscular Hemoglobin 33.9 % 33.3 % Concent Red Cell Distribution Width 13.3 % 12.0 % Platelet Count 140 TH/MM3 149 TH/MM3 Mean Platelet Volume 9.6 FL 8.8 FL Hemoglobin F () 0.0 % CBC Comment AUTO DIFF Differential Total Cells 100 Counted Neutrophils % (Manual) 73 % Lymphocytes % 23 % Monocytes % 3 % Eosinophils % 1 % Neutrophils # (Manual) 7.6 TH/MM3 Differential Comment FINAL DIFF MANUAL Platelet Estimate LOW Platelet Morphology Comment NORMAL Red Cell Morphology Comment NORMAL Sodium Level 138 MEQ/L Potassium Level 3.7 MEQ/L Chloride Level 104 MEQ/L Carbon Dioxide Level 23.6 MEQ/L Anion Gap 10 MEQ/L Blood Urea Nitrogen 10 MG/DL Creatinine 0.54 MG/DL Estimat Glomerular Filtration 140 ML/MIN Rate Random Glucose 80 MG/DL Calcium Level 8.9 MG/DL Total Bilirubin 0.3 MG/DL Aspartate Amino Transf 12 U/L (AST/SGOT) Alanine Aminotransferase 10 U/L (ALT/SGPT) Alkaline Phosphatase 138 U/L Total Protein 6.9 GM/DL Albumin 3.0 GM/DL Blood Type O POSITIVE Antibody Screen NEGATIVE Prothrombin Time 10.0 SEC Prothromb Time International 0.9 RATIO Ratio Activated Partial 29.3 SEC Thromboplast Time Fibrinogen 365 mg/dL Magnesium Level 8.6 MG/DL Test 09/14/16 09/14/16 09/14/16 09/14/16 03:59 05:25 10:14 12:25 Blood Gas Puncture Site CORD BLOOD Blood Gas Base Excess -3.3 mmol/L Blood Gas Oxygen Saturation 8 % Cord Blood HCO3 22 mmol/L Cord Arterial Blood pH 7.28 Cord Arterial Blood PCO2 49 mmHG Cord Arterial Blood PO2 9 mmHG Urine Color YELLOW Urine Turbidity HAZY Urine pH 5.5 Urine Specific [place] 1.017 Urine Protein TRACE mg/dL Urine Glucose (UA) NEG mg/dL Urine Ketones 80 mg/dL Urine Occult Blood LARGE Urine Nitrite NEG Urine Bilirubin NEG Urine Urobilinogen LESS THAN 2.0 MG/DL Urine Leukocyte Esterase LARGE Urine RBC /hpf Urine WBC 29 /hpf Urine Squamous Epithelial 2 /hpf Cells Urine Transitional Epithelial <1 /hpf Cells Urine Bacteria RARE /hpf Urine Hyaline Casts 7 /lpf Urine Granular Casts 2 /lpf Urine Mucus FEW /lpf Microscopic Urinalysis Comment CULTURE INDICATED Urine Opiates Screen POS Urine Barbiturates Screen NEG Urine Amphetamines Screen NEG Urine Benzodiazepines Screen NEG Urine Cocaine Screen NEG Urine Cannabinoids Screen POS Hemoglobin 8.1 GM/DL 8.5 GM/DL Hematocrit 23.7 % 24.7 % White Blood Count 15.1 TH/MM3 Red Blood Count 2.85 MIL/MM3 Mean Corpuscular Volume 86.9 FL Mean Corpuscular Hemoglobin 29.8 PG Mean Corpuscular Hemoglobin 34.3 % Concent Red Cell Distribution Width 13.0 % Platelet Count 123 TH/MM3 Mean Platelet Volume 9.8 FL Neutrophils (%) (Auto) 90.0 % Lymphocytes (%) (Auto) 5.5 % Monocytes (%) (Auto) 4.4 % Eosinophils (%) (Auto) 0.0 % Basophils (%) (Auto) 0.1 % Neutrophils # (Auto) 13.6 TH/MM3 Lymphocytes # (Auto) 0.8 TH/MM3 Monocytes # (Auto) 0.7 TH/MM3 Eosinophils # (Auto) 0.0 TH/MM3 Basophils # (Auto) 0.0 TH/MM3 CBC Comment DIFF FINAL Differential Comment Prothrombin Time 9.9 SEC Prothromb Time International 0.9 RATIO Ratio Test 09/14/16 16:26 White Blood Count 13.6 TH/MM3 Red Blood Count 2.45 MIL/MM3 Hemoglobin 7.3 GM/DL Hematocrit 21.3 % Mean Corpuscular Volume 87.1 FL Mean Corpuscular Hemoglobin 29.7 PG Mean Corpuscular Hemoglobin 34.1 % Concent Red Cell Distribution Width 12.6 % Platelet Count 124 TH/MM3 Mean Platelet Volume 9.7 FL Prothrombin Time 10.0 SEC Prothromb Time International 0.9 RATIO Ratio Activated Partial 28.9 SEC Thromboplast Time Objective Remarks GENERAL: Well-nourished, well-developed patient. CARDIOVASCULAR: Regular rate and rhythm without murmurs, gallops, or rubs. RESPIRATORY: Breath sounds equal bilaterally. No accessory muscle use. ABDOMEN/GI: Abdomen soft, non-tender, bowel sounds present. Incision: Clean, dry and intact. Fundus: Firm, non-tender at umbilicus. GENITOURINARY: Light to moderate bleeding. EXTREMITIES: No cyanosis or edema, non-tender, without signs of DVT. Medications and IVs Current Medications Medications (Trade) Dose Ordered Sig/Deanna Route Start Time Stop Time Status Last Admin (NS Flush) 2 ml BID IV 09/14/16 09:00 09/14/16 21:15 (NS Flush) 2 ml UNSCH PRN IV 09/14/16 04:45 (Tylenol) 650 mg Q6H PRN PO 09/14/16 04:45 (Percocet 5-325 Mg) 1 tab Q4H PRN PO 09/14/16 04:45 (Percocet 5-325 Mg) 2 tab Q4H PRN PO 09/14/16 04:45 (Ambien) 5 mg HS PRN PO 09/14/16 04:45 (M-M-R Ii Inj) 0.5 ml ONCE ONCE SQ 09/15/16 16:00 09/15/16 16:01 (Boostrix Inj) 0.5 ml ONCE ONCE IM 09/15/16 16:00 09/15/16 16:01 (Zofran Inj) 4 mg Q6H PRN IV PUSH 09/14/16 04:45 Miscellaneous Information NO SYSTEMIC NARCOTICS TO BE GIVEN FO... UNSCH PRN XX 09/14/16 07:45 09/15/16 07:44 (Narcan Inj) 0.4 mg UNSCH PRN IV 09/14/16 07:45 09/15/16 07:44 (Benadryl Inj) 25 mg Q6H PRN IV PUSH 09/14/16 07:45 09/15/16 07:44 (Benadryl) 50 mg Q6H PRN PO 09/14/16 07:45 09/15/16 07:44 09/14/16 08:49 Miscellaneous Information ALL NURSING DEPARTMENTS UNSCH PRN XX 09/14/16 07:45 09/15/16 07:44 (NS 250 ml Inj) 250 ml @ 15 mls/hr ONCE ONCE IV 09/14/16 18:15 09/15/16 10:54 (Aguila Chisholm MD R2) Assessment/Plan Assessment and Plan 21 year old POD 1 after for placental abruption. She had symptomatic anemia post-operatively and was given 2 units PRBC with good response. - Monitor lochia. - Monitor for symptoms of anemia. - Encourage ambulation - Pain control with Percocet, ibuprofen - Follow up with OB within one week of discharge Discussed with Dr. Bass (Aguila Chisholm MD R2) Attestation Patient s/p 2 units PRBC's, doing well today. Agree with management plan (Oumou Bass MD) Aguila Chisholm MD R2 Sep 15, 2016 07:29 Oumou Bass MD Sep 15, 2016 08:18
[2016-09-15 08:34] VITALS: BP 106/73; PULSE 70; RESP 16; TEMP 98.1
[2016-09-15] MEDS: oxyCODONE/ACETAMINOPHEN 5 MG/325 MG TAB PO PRN ×2 (10:05→19:21)
[2016-09-15] MEDS ORDERED: MEASLES, MUMPS, RUBELLA VACCINE 0.5 ML VIAL SQ ONE (16:00)
[2016-09-15] MEDS ORDERED: DIPHTH/TETANUS/ACEL PERTUSSIS (BOOSTER) 0.5 ML VIAL/PFS IM ONE (16:00)
[2016-09-15 19:18] VITALS: PULSE 61; RESP 16; TEMP 98.5
[2016-09-15 19:47] VITALS: BP 111/74
[2016-09-16] MEDS: oxyCODONE/ACETAMINOPHEN 5 MG/325 MG TAB PO PRN ×3 (00:04→12:41)
[2016-09-16] MEDS: SODIUM CHLORIDE 0.9% FLUSH 5 ML FLUSH IV SCH (07:50)
--- NOTE | 2016-09-16 09:55 | HHI.OB ---
Subjective Post Operative Day: 2 Remarks Ms. Ojeda is a who is POD 2 from repeat CS; complicated by marginal placental abruption. Patient received 2 U pRBC post-operatively; posttransfusion hemoglobin of 9.8 without significant vaginal bleeding subsequently. Patient states that pain medications have helped in that her pain is decreasing. Patient reports normal urination without dysuria. Patient is passing gas normally. is feeding via formula. Patient denies shortness of breath or leg swelling. Patient states that she is ambulating normally. Patient requests discharge home today. (Gildardo Cowan MD R2) Remarks Patient seen and evaluated with resident under direct supervision, agree with assessment and plan. (Elia Mcneil MD) Objective Vitals/I&O Vital Signs Date Time Temp Pulse Resp B/P Pulse Ox O2 Delivery O2 Flow Rate FiO2 09/15/16 19:47 111/74 09/15/16 19:18 98.5 61 16 (Gildardo Cowan MD R2) Result Diagram: 09/15/16 0513 09/13/16 1808 Other Results Laboratory Tests Test 09/13/16 09/13/16 09/13/16 09/14/16 01:55 18:08 20:00 01:55 White Blood Count 13.3 TH/MM3 10.4 TH/MM3 Red Blood Count 3.81 MIL/MM3 4.03 MIL/MM3 Hemoglobin 11.3 GM/DL 11.6 GM/DL Hematocrit 33.3 % 34.8 % Mean Corpuscular Volume 87.4 FL 86.4 FL Mean Corpuscular Hemoglobin 29.6 PG 28.8 PG Mean Corpuscular Hemoglobin 33.9 % 33.3 % Concent Red Cell Distribution Width 13.3 % 12.0 % Platelet Count 140 TH/MM3 149 TH/MM3 Mean Platelet Volume 9.6 FL 8.8 FL Hemoglobin F () 0.0 % CBC Comment AUTO DIFF Differential Total Cells 100 Counted Neutrophils % (Manual) 73 % Lymphocytes % 23 % Monocytes % 3 % Eosinophils % 1 % Neutrophils # (Manual) 7.6 TH/MM3 Differential Comment FINAL DIFF MANUAL Platelet Estimate LOW Platelet Morphology Comment NORMAL Red Cell Morphology Comment NORMAL Sodium Level 138 MEQ/L Potassium Level 3.7 MEQ/L Chloride Level 104 MEQ/L Carbon Dioxide Level 23.6 MEQ/L Anion Gap 10 MEQ/L Blood Urea Nitrogen 10 MG/DL Creatinine 0.54 MG/DL Estimat Glomerular Filtration 140 ML/MIN Rate Random Glucose 80 MG/DL Calcium Level 8.9 MG/DL Total Bilirubin 0.3 MG/DL Aspartate Amino Transf 12 U/L (AST/SGOT) Alanine Aminotransferase 10 U/L (ALT/SGPT) Alkaline Phosphatase 138 U/L Total Protein 6.9 GM/DL Albumin 3.0 GM/DL Blood Type O POSITIVE Antibody Screen NEGATIVE Prothrombin Time 10.0 SEC Prothromb Time International 0.9 RATIO Ratio Activated Partial 29.3 SEC Thromboplast Time Fibrinogen 365 mg/dL Magnesium Level 8.6 MG/DL Test 09/14/16 09/14/16 09/14/16 09/14/16 03:59 05:25 10:14 12:25 Blood Gas Puncture Site CORD BLOOD Blood Gas Base Excess -3.3 mmol/L Blood Gas Oxygen Saturation 8 % Cord Blood HCO3 22 mmol/L Cord Arterial Blood pH 7.28 Cord Arterial Blood PCO2 49 mmHG Cord Arterial Blood PO2 9 mmHG Urine Color YELLOW Urine Turbidity HAZY Urine pH 5.5 Urine Specific [place] 1.017 Urine Protein TRACE mg/dL Urine Glucose (UA) NEG mg/dL Urine Ketones 80 mg/dL Urine Occult Blood LARGE Urine Nitrite NEG Urine Bilirubin NEG Urine Urobilinogen LESS THAN 2.0 MG/DL Urine Leukocyte Esterase LARGE Urine RBC /hpf Urine WBC 29 /hpf Urine Squamous Epithelial 2 /hpf Cells Urine Transitional Epithelial <1 /hpf Cells Urine Bacteria RARE /hpf Urine Hyaline Casts 7 /lpf Urine Granular Casts 2 /lpf Urine Mucus FEW /lpf Microscopic Urinalysis Comment CULTURE INDICATED Urine Opiates Screen POS Urine Barbiturates Screen NEG Urine Amphetamines Screen NEG Urine Benzodiazepines Screen NEG Urine Cocaine Screen NEG Urine Cannabinoids Screen POS Hemoglobin 8.1 GM/DL 8.5 GM/DL Hematocrit 23.7 % 24.7 % White Blood Count 15.1 TH/MM3 Red Blood Count 2.85 MIL/MM3 Mean Corpuscular Volume 86.9 FL Mean Corpuscular Hemoglobin 29.8 PG Mean Corpuscular Hemoglobin 34.3 % Concent Red Cell Distribution Width 13.0 % Platelet Count 123 TH/MM3 Mean Platelet Volume 9.8 FL Neutrophils (%) (Auto) 90.0 % Lymphocytes (%) (Auto) 5.5 % Monocytes (%) (Auto) 4.4 % Eosinophils (%) (Auto) 0.0 % Basophils (%) (Auto) 0.1 % Neutrophils # (Auto) 13.6 TH/MM3 Lymphocytes # (Auto) 0.8 TH/MM3 Monocytes # (Auto) 0.7 TH/MM3 Eosinophils # (Auto) 0.0 TH/MM3 Basophils # (Auto) 0.0 TH/MM3 CBC Comment DIFF FINAL Differential Comment Prothrombin Time 9.9 SEC Prothromb Time International 0.9 RATIO Ratio Test 09/14/16 16:26 White Blood Count 13.6 TH/MM3 Red Blood Count 2.45 MIL/MM3 Hemoglobin 7.3 GM/DL Hematocrit 21.3 % Mean Corpuscular Volume 87.1 FL Mean Corpuscular Hemoglobin 29.7 PG Mean Corpuscular Hemoglobin 34.1 % Concent Red Cell Distribution Width 12.6 % Platelet Count 124 TH/MM3 Mean Platelet Volume 9.7 FL Prothrombin Time 10.0 SEC Prothromb Time International 0.9 RATIO Ratio Activated Partial 28.9 SEC Thromboplast Time Objective Remarks GENERAL: Well-nourished, well-developed patient. CARDIOVASCULAR: Regular rate and rhythm without murmurs, gallops, or rubs. RESPIRATORY: Breath sounds equal bilaterally. No accessory muscle use. ABDOMEN/GI: Abdomen soft, non-tender, bowel sounds present. Incision: Clean, dry and intact. Fundus: Firm, non-tender at umbilicus. GENITOURINARY: Light to moderate bleeding. EXTREMITIES: No cyanosis or edema, non-tender, without signs of DVT. Medications and IVs Current Medications Medications (Trade) Dose Ordered Sig/Deanna Route Start Time Stop Time Status Last Admin (NS Flush) 2 ml BID IV 09/14/16 09:00 09/14/16 21:15 (NS Flush) 2 ml UNSCH PRN IV 09/14/16 04:45 (Tylenol) 650 mg Q6H PRN PO 09/14/16 04:45 (Percocet 5-325 Mg) 1 tab Q4H PRN PO 09/14/16 04:45 09/15/16 14:56 (Percocet 5-325 Mg) 2 tab Q4H PRN PO 09/14/16 04:45 09/16/16 08:20 (Ambien) 5 mg HS PRN PO 09/14/16 04:45 (Zofran Inj) 4 mg Q6H PRN IV PUSH 09/14/16 04:45 (Gildardo Cowan MD R2) Assessment/Plan Problem List: (1) care following delivery Assessment and Plan 21 year old POD 2 after repeat . placental abruption. Anemia: Patient with symptomatic anemia post-operatively with Hgb 7.3 09/14. -> Patient given 2 units PRBC with repeat Hemoglobin 9.8 (09/15). -Monitor at home; will defer additional Hgb testing since symptoms resolved and minimal lochia. -Will discharge home on Ferrous Sulfate daily Lack of follow-up: will discharge patient home with follow-up with [facility] -Anticipatory guidance given regarding reasons to seek ED evaluation - Pain control with Percocet, ibuprofen - Follow up with OB within one week of discharge Discussed with Dr. Mcneil (Gildardo Cowan MD R2) Gildardo Cowan MD R2 Sep 16, 2016 09:55 Elia Mcneil MD Sep 22, 2016 11:51
[2016-09-16] MEDS ORDERED: ACET325T PO (09:57)
[2016-09-16] MEDS ORDERED: FERR325T PO (09:57)
[2016-09-16] MEDS ORDERED: OXYC1TAB63 PO (09:57)
--- NOTE | 2016-09-16 09:57 | HHI.DCPOC ---
Discharge Care Plan Diagnosis: (1) Placental abruption (2) care following delivery Goals to Promote Your Health * To prevent worsening of your condition and complications * To maintain your health at the optimal level Directions to Meet Your Goals Take your medications as prescribed Follow your dietary instruction Follow activity as directed Keep your appointments as scheduled Take your immunizations and boosters as scheduled If your symptoms worsen call your PCP, if no PCP go to Urgent Care Center or Emergency Room Smoking is Dangerous to Your Health. Avoid second hand smoke Call the 24-hour hour crisis hotline for domestic abuse at Gildardo Cowan MD R2 Sep 16, 2016 09:57
[2016-09-21 12:22] LABS: PHENCYCLIDINE URINE NEG (NEG)
[2016-09-21 12:23] LABS: BATH SALTS (MDPV) UR NEG (NEG); ECSTASY (MDMA) UR NEG (NEG); HEROIN (6-ACETYLMORPHINE) UR NEG (NEG); K2 SPICE UR NEG (NEG); OBMETHADONE UR NEG (NEG); OXYCODONE (PERCODAN) NEG (NEG)
== END 2016-09-16 13:39 | disposition home or self-care (01) | DRG 765 ==
LOC: PHED 17:30 → H2EB 19:54 → H1EA 09-14 06:45
PROVIDERS: ADMIT Obstetrics & Gynecology Maternal & Fetal Medicine; ATTEND Obstetrics & Gynecology Maternal & Fetal Medicine
PROC: 10D00Z1 Extraction of Products of Conception, Low, Open Approach (ICD-10-PCS; principal; 2016-09-14)
PROC: 30233N1 Transfusion of Nonautologous Red Blood Cells into Peripheral Vein, Percutaneous Approach (ICD-10-PCS; 2016-09-14)
DX: O45.93 Premature separation of placenta, unspecified, third trimester (principal); O60.14X0 Preterm labor third trimester with preterm delivery third trimester, not applicable or unspecified; O34.211 Maternal care for low transverse scar from previous cesarean delivery; Z3A.33 33 weeks gestation of pregnancy; O99.334 Smoking (tobacco) complicating childbirth; F17.210 Nicotine dependence, cigarettes, uncomplicated; R55 Syncope and collapse; O90.81 Anemia of the puerperium; D64.89 Other specified anemias; Z37.0 Single live birth
CPT/HCPCS: 36430; 80053; 80307; 81001; 82805; 83030; 83735; 85007; 85014; 85018; 85025; 85027; 85379; 85384; 85610; 85730; 86850; 86900; 86901; 86920; 87086; 88307; 90715; 99281; 99285; G0481; J0690; J0702; J1130; J2274; J2370; J2405; J2590; J3475; J7120; P9016; Q0163

== ENCOUNTER 2016-10-20 03:16 | Emergency (ER) | payer MEDICAID ==
[~2016-10-20] VITALS: Ht 157.5 cm; Wt 48.4 kg
[~2016-10-20 03:16] MED LIST changes: +ACET325T PO; -ANAP550T PO; +FERR325T PO; +OXYC1TAB63 PO; -PERC5TAB12 PO; -PREN0.01 PO; -SENN1TAB11 PO
[2016-10-20 03:23] VITALS: BP 117/85; PULSE 88; RESP 16; TEMP 97.7; O2SAT 98
[2016-10-20 04:15] LABS: BLOOD, URINE TRACE (NEG); GLUCOSE,URINE NEG (NEG); KETONE, URINE 15 mg/dL (NEG); NITRITE,URINE NEG (NEG)
[2016-10-20] MEDS ORDERED: SODIUM CHLORIDE 0.9% FLUSH 10 ML FLUSH IV FLUSH PRN (04:15)
[2016-10-20 04:20] VITALS: BP 112/68; PULSE 65; RESP 18; O2SAT 99
[2016-10-20 04:20] LABS: URINE COLOR YELLOW (YELLW/STRAW)
[2016-10-20 04:21] LABS: BACTERIA, URINE MOD /hpf; COMMENT (UR) CULTURE INDICATED; CULTURE IF INDICATED CULTURE INDICATED; RBC, URINE 0-3 /hpf (0-3); SQUAMOUS EPITHELIAL CELL URINE > 8 /hpf (0-5)
--- NOTE | 2016-10-20 04:23 | PD ---
HPI Chief Complaint: Abdominal Pain Time Seen by Provider: 04:10 Travel History International Travel<30 days: No Contact w/Intl Traveler<30days: No Traveled to known affect area: No History of Present Illness HPI 21 year-old female presents to the emergency department for complaint of pain at her incision site. Patient states she is 6 weeks post . Patient is not breast-feeding. Patient has had no fever chills nausea vomiting redness drainage or swelling at the incision site does not report any dysuria frequency urgency or abnormal vaginal bleeding or discharge. Patient states she has noted pain at her incision site for approximately one week and has appointment with her [employer] on Saturday. Patient did not contact her managing physician to report pain at this site. Patient states that she has noted some hard underneath and around the incision site. Patient denies other concerns or complaints. Patient states that she's had 2 previous C-sections and has not had similar symptoms. Patient rates her pain 8/10 in intensity. Patient has taken acetaminophen without relief and a dose of ibuprofen without relief. PFSH Past Medical History Narrative Medical Seizure, , tobacco use, nursing notes reviewed Diminished Hearing: No Psychiatric: No Immunizations Current: Yes Seizures: Yes (2009 LAST SEIZURE, STOPPED MEDS 2012) Influenza Vaccination: No ?: Not LMP: NONE SINCE DELIVERY 09/14/16 : 4 Para: 3 Miscarriage: 1 Past Surgical History Section: Yes (X3) Oral Surgery: Yes (WISDOM TEETH) Tonsillectomy: Yes Other Surgery: Yes Social History Alcohol Use: No Tobacco Use: Yes (5 CIGS DAILY) Substance Use: No Allergies-Medications (Allergen,Severity, Reaction): Coded Allergies: No Known Allergies (Verified , 09/13/16) Reported Meds & Prescriptions Reported Meds & Active Scripts Active Ferrous Sulfate 325 Mg Tab 325 Mg PO DAILY Acetaminophen 325 Mg Tab 650 Mg PO Q6H PRN Oxycodone-Acetaminophen 5-325 mg Tab 1 Tab PO Q4H PRN Review of Systems Except as stated in HPI: all other systems reviewed are Neg General / Constitutional: No: Fever, Chills HENT: No: Congestion Cardiovascular: No: Chest Pain or Discomfort Respiratory: No: Shortness of Breath Gastrointestinal: No: Vomiting, Abdominal Pain Genitourinary: No: Decreased Urinary Output, Discharge, Vaginal Bleeding Skin: No Rash Neurologic: No: Weakness Psychiatric: No: Anxiety Hematologic/Lymphatic: No: Lymph Node Enlargement Physical Exam Narrative GENERAL: Well-developed well-nourished female in no acute distress no respiratory distress SKIN: Warm and dry. HEAD: Normocephalic. EYES: No scleral icterus. No injection or drainage. NECK: Supple, trachea midline. No JVD or lymphadenopathy. CARDIOVASCULAR: Regular rate and rhythm without murmurs, gallops, or rubs. RESPIRATORY: Breath sounds equal bilaterally. No accessory muscle use. GASTROINTESTINAL: Abdomen soft, non-tender except for mild tenderness at the edge of the well-healing incision site with no induration no erythema no increased warmth no drainage, nondistended. MUSCULOSKELETAL: No cyanosis, or edema. BACK: Nontender without obvious deformity. No CVA tenderness. Data Data Last Documented VS Vital Signs Date Time Temp Pulse Resp B/P Pulse Ox O2 Delivery O2 Flow Rate FiO2 10/20/16 04:20 18 99 Room Air 10/20/16 04:20 65 112/68 10/20/16 03:23 97.7 Orders Urinalysis - C+S If Indicated (10/20/16 04:05) Basic Metabolic Panel (Bmp) (10/20/16 04:10) Complete Blood Count With Diff (10/20/16 04:10) Iv Access Insert/Monitor (10/20/16 04:10) Ecg Monitoring (10/20/16 04:10) Oximetry (10/20/16 04:10) Sodium Chloride 0.9% Flush (Ns Flush) (10/20/16 04:15) Urine Culture (10/20/16 03:25) Labs Laboratory Tests Test 10/20/16 10/20/16 03:25 04:25 Urine Color YELLOW Urine Turbidity CLOUDY Urine pH 6.0 Urine Specific [place] 1.021 Urine Protein TRACE mg/dL Urine Glucose (UA) NEG mg/dL Urine Ketones 15 mg/dL Urine Occult Blood TRACE Urine Nitrite NEG Urine Bilirubin NEG Urine Leukocyte Esterase SMALL Urine RBC 0-3 /hpf Urine WBC 6-8 /hpf Urine Squamous Epithelial > 8 /hpf Cells Urine Bacteria MOD /hpf Microscopic Urinalysis Comment CULTURE INDICATED White Blood Count 5.6 TH/MM3 Red Blood Count 4.36 MIL/MM3 Hemoglobin 12.9 GM/DL Hematocrit 38.1 % Mean Corpuscular Volume 87.3 FL Mean Corpuscular Hemoglobin 29.6 PG Mean Corpuscular Hemoglobin 33.9 % Concent Red Cell Distribution Width 13.2 % Platelet Count 142 TH/MM3 Mean Platelet Volume 8.9 FL Neutrophils (%) (Auto) 56.0 % Lymphocytes (%) (Auto) 33.5 % Monocytes (%) (Auto) 7.7 % Eosinophils (%) (Auto) 2.5 % Basophils (%) (Auto) 0.3 % Neutrophils # (Auto) 3.2 TH/MM3 Lymphocytes # (Auto) 1.9 TH/MM3 Monocytes # (Auto) 0.4 TH/MM3 Eosinophils # (Auto) 0.1 TH/MM3 Basophils # (Auto) 0.0 TH/MM3 CBC Comment DIFF FINAL Differential Comment Sodium Level 141 MEQ/L Potassium Level 4.0 MEQ/L Chloride Level 105 MEQ/L Carbon Dioxide Level 26.9 MEQ/L Anion Gap 9 MEQ/L Blood Urea Nitrogen 8 MG/DL Creatinine 0.80 MG/DL Estimat Glomerular Filtration 89 ML/MIN Rate Random Glucose 82 MG/DL Calcium Level 9.1 MG/DL [facility] Medical Decision Making Medical Screen Exam Complete: Yes Emergency Medical Condition: Yes Medical Record Reviewed: Yes Interpretation(s) POC hcg: negative UA: Leukocyte esterase white blood cells bacteria CBC & BMP Diagram 10/20/16 04:25 Vital Signs Date Time Temp Pulse Resp B/P Pulse Ox O2 Delivery O2 Flow Rate FiO2 10/20/16 04:20 18 99 Room Air 10/20/16 04:20 65 18 112/68 99 Room Air 10/20/16 03:30 16 10/20/16 03:23 97.7 88 16 117/85 98 Room Air Differential Diagnosis Postop wound pain, adhesions, seroma, abscess, UTI Narrative Course Patient is 6 weeks with well healing appearing scar with no redness induration point tenderness fluctuance or increased warmth. CBC basic metabolic panel urinalysis specimens obtained Lab is remarkable for abnormal urinalysis total white cell count within normal range with normal automated differential chemistries within normal limits and [id number] hCG is negative Patient given first dose of antibiotic in the emergency department along with toradol 30 mg IV Diagnosis Primary Impression: UTI (urinary tract infection) Qualified Code: N39.0 - Urinary tract infection without hematuria, site unspecified Referrals: Ambulatory Service Representative call for appointment Patient Instructions: General Instructions Med/Other Pt SpecificInfo: Prescription(s) given Scripts Acetaminophen-Codeine (Tylenol-Codeine #3)300-30 mg Tab1 Tab PO Q6HR PRN (PAIN) #7 TAB Ref 0 Prov:Charlette Boggs MD 10/20/16 Ibuprofen 400 Mg [id number] Mg PO Q6H PRN (PAIN GREATER THAN 5) #10 TAB Ref 0 Prov:Charlette Boggs MD 10/20/16 Cephalexin (Keflex)500 Mg [id number] Mg PO Q6H 7 Days Ref 0 Prov:Charlette Boggs MD 10/20/16 Disposition: 01 DISCHARGE HOME Condition: Stable Charlette Boggs MD Oct 20, 2016 04:23
[2016-10-20 04:31] LABS: AUTOMATED NEUTROPHIL # 3.2 TH/MM3 (1.8-7.7); BASOPHIL % 0.3 % (0.0-2.0); EOSINOPHIL # 0.1 TH/MM3 (0-0.4); EOSINOPHIL % 2.5 % (0.0-4.0); HEMATOCRIT 38.1 % (35.0-46.0); HEMO FLAGS DIFF FINAL; LYMPH % 33.5 % (9.0-44.0); LYMPHOCYTE # 1.9 TH/MM3 (1.0-4.8); MEAN CELL VOLUME 87.3 FL (80.0-100.0); MEAN CORPUSCULAR HEMOGLOBIN 29.6 PG (27.0-34.0); MEAN CORPUSCULAR HGB CONC 33.9 % (32.0-36.0); MONO % 7.7 % (0.0-8.0); PLATELET COUNT 142 TH/MM3 (150-450); RED BLOOD COUNT 4.36 MIL/MM3 (4.00-5.30); RED CELL DISTRIBUTION WIDTH 13.2 % (11.6-17.2); WHITE BLOOD COUNT 5.6 TH/MM3 (4.0-11.0)
[2016-10-20 04:45] LABS: BICARBONATE 26.9 MEQ/L (21.0-32.0)
[2016-10-20] MEDS ORDERED: CEPH-460 PO (04:56)
[2016-10-20] MEDS ORDERED: TYLETAB34 PO (04:56)
[2016-10-20] MEDS ORDERED: IBUP400T20 PO (04:56)
[2016-10-20] MEDS ORDERED: CEPHALEXIN MONOHYDRATE 500 MG CAP PO ONE (05:00)
[2016-10-20 05:15] VITALS: BP 117/75; PULSE 67; RESP 16; O2SAT 99
[2016-10-20] MEDS ORDERED: KETOROLAC TROMETHAMINE 30 MG/ML (IVP) VIAL IV PUSH ONE (05:15)
== END 2016-10-20 05:24 | disposition home or self-care (01) ==
LOC: PHED 03:16
DX: O86.20 Urinary tract infection following delivery, unspecified (principal); O99.335 Smoking (tobacco) complicating the puerperium
CPT/HCPCS: 80048; 81001; 84703; 85025; 87086; 96374; 99284; J1885

== ENCOUNTER 2017-05-14 01:31 | Emergency (ER) | payer SELFPAY ==
[~2017-05-14] VITALS: Ht 162.6 cm; Wt 48.1 kg
[~2017-05-14 01:31] MED LIST changes: +CEPH-460 PO; +IBUP400T20 PO; +TYLETAB34 PO
[2017-05-14 01:33] VITALS: BP 142/78; PULSE 81; RESP 18; TEMP 98.2; O2SAT 100
--- NOTE | 2017-05-14 01:52 | PD ---
HPI Chief Complaint: Injury Time Seen by Provider: 01:45 Travel History International Travel<30 days: No Contact w/Intl Traveler<30days: No Traveled to known affect area: No History of Present Illness HPI 21-year-old female here for evaluation of left hand pain. The patient reports that about 3 weeks ago while at work at [employer] her hand got caught between 2 pieces of equipment. She reports that she has not had time to have it evaluated and the pain has persisted despite taking Aleve. She denies any other injuries. Pain is 2 out of 10, worse with movement and palpation. No paresthesias. She is right-hand dominant. [facility] Past Medical History Diminished Hearing: No Psychiatric: No Immunizations Current: Yes Seizures: Yes (2009 LAST SEIZURE, STOPPED MEDS 2012) ?: Not LMP: 05/10/17 : 4 Para: 3 Miscarriage: 1 Past Surgical History Section: Yes (X3) Oral Surgery: Yes (WISDOM TEETH) Tonsillectomy: Yes Other Surgery: Yes Social History Alcohol Use: No Tobacco Use: Yes (5 CIGS DAILY) Substance Use: No Allergies-Medications (Allergen,Severity, Reaction): Coded Allergies: No Known Allergies (Verified , 05/14/17) Reported Meds & Prescriptions Reported Meds & Active Scripts Active No Active Prescriptions or Reported Medications Review of Systems Except as stated in HPI: all other systems reviewed are Neg Physical Exam Narrative GENERAL: Well-developed, well-nourished, comfortable, no apparent distress. SKIN: Focused skin assessment warm/dry. Dorsum of left hand over second MCP joint and second metacarpal there is slight ecchymosis with slight edema and tenderness. No skin breaks. CARDIOVASCULAR: Regular rate and rhythm. Bilateral distal radial pulses are brisk and equal. Normal capillary refill in left hand. RESPIRATORY: No accessory muscle use. Clear to auscultation. Breath sounds equal bilaterally. GASTROINTESTINAL: Abdomen soft, non-tender, nondistended. Hepatic and splenic margins not palpable. MUSCULOSKELETAL: Skin exam as above. Normal range of motion in extension and right hand. NEUROLOGICAL: Awake and alert. No obvious cranial nerve deficits. Motor grossly within normal limits. Normal speech. Normal sensation and left hand. PSYCHIATRIC: Appropriate mood and affect; insight and judgment normal. Data Data Last Documented VS Vital Signs Date Time Temp Pulse Resp B/P (MAP) Pulse Ox O2 Delivery O2 Flow Rate FiO2 05/14/17 01:47 18 100 Room Air 05/14/17 01:33 98.2 81 142/78 (99) Orders Orders Hand, Complete ([id number]) (05/14/17 ) MDM Medical Decision Making Medical Screen Exam Complete: Yes Emergency Medical Condition: Yes Differential Diagnosis Left hand contusion, left hand fracture Narrative Course Left hand x-ray: No acute fracture. Patient was made aware of x-ray findings. Left hand is neurovascularly intact. There are no skin breaks. She is stable for discharge home with outpatient follow-up with a primary care physician this week. She was informed on when to return to the emergency department. She verbalizes understanding and agreement with plan. Diagnosis Primary Impression: Contusion of left hand Qualified Codes: S60.222A - Contusion of left hand, initial encounter Referrals: Primary Care Physician 3 days Additional Instructions: Follow-up with a primary care physician this week. Continue taking ibuprofen for pain. Return to the emergency room if worsening symptoms or any other concerns. Scripts No Active Prescriptions or Reported Meds Disposition: 01 DISCHARGE HOME Condition: Stable Dilan Sánchez MD May 14, 2017 01:52
--- NOTE | 2017-05-14 01:52 | PD ---
HPI Chief Complaint: Injury Time Seen by Provider: 01:45 Travel History International Travel<30 days: No Contact w/Intl Traveler<30days: No Traveled to known affect area: No History of Present Illness HPI 21-year-old female here for evaluation of left hand pain. The patient reports that about 3 weeks ago while at work at [employer] her hand got caught between 2 pieces of equipment. She reports that she has not had time to have it evaluated and the pain has persisted despite taking Aleve. She denies any other injuries. Pain is 2 out of 10, worse with movement and palpation. No paresthesias. She is right-hand dominant. [facility] Past Medical History Diminished Hearing: No Psychiatric: No Immunizations Current: Yes Seizures: Yes (2009 LAST SEIZURE, STOPPED MEDS 2012) ?: Not LMP: 05/10/17 : 4 Para: 3 Miscarriage: 1 Past Surgical History Section: Yes (X3) Oral Surgery: Yes (WISDOM TEETH) Tonsillectomy: Yes Other Surgery: Yes Social History Alcohol Use: No Tobacco Use: Yes (5 CIGS DAILY) Substance Use: No Allergies-Medications (Allergen,Severity, Reaction): Coded Allergies: No Known Allergies (Verified , 05/14/17) Reported Meds & Prescriptions Reported Meds & Active Scripts Active No Active Prescriptions or Reported Medications Review of Systems Except as stated in HPI: all other systems reviewed are Neg Physical Exam Narrative GENERAL: Well-developed, well-nourished, comfortable, no apparent distress. SKIN: Focused skin assessment warm/dry. Dorsum of left hand over second MCP joint and second metacarpal there is slight ecchymosis with slight edema and tenderness. No skin breaks. CARDIOVASCULAR: Regular rate and rhythm. Bilateral distal radial pulses are brisk and equal. Normal capillary refill in left hand. RESPIRATORY: No accessory muscle use. Clear to auscultation. Breath sounds equal bilaterally. GASTROINTESTINAL: Abdomen soft, non-tender, nondistended. Hepatic and splenic margins not palpable. MUSCULOSKELETAL: Skin exam as above. Normal range of motion in extension and right hand. NEUROLOGICAL: Awake and alert. No obvious cranial nerve deficits. Motor grossly within normal limits. Normal speech. Normal sensation and left hand. PSYCHIATRIC: Appropriate mood and affect; insight and judgment normal. Data Data Last Documented VS Vital Signs Date Time Temp Pulse Resp B/P (MAP) Pulse Ox O2 Delivery O2 Flow Rate FiO2 05/14/17 01:47 18 100 Room Air 05/14/17 01:33 98.2 81 142/78 (99) Orders Orders Hand, Complete ([id number]) (05/14/17 ) MDM Medical Decision Making Medical Screen Exam Complete: Yes Emergency Medical Condition: Yes Differential Diagnosis Left hand contusion, left hand fracture Narrative Course Left hand x-ray: No acute fracture. Patient was made aware of x-ray findings. Left hand is neurovascularly intact. There are no skin breaks. She is stable for discharge home with outpatient follow-up with a primary care physician this week. She was informed on when to return to the emergency department. She verbalizes understanding and agreement with plan. Diagnosis Primary Impression: Contusion of left hand Qualified Codes: S60.222A - Contusion of left hand, initial encounter Referrals: Primary Care Physician 3 days Additional Instructions: Follow-up with a primary care physician this week. Continue taking ibuprofen for pain. Return to the emergency room if worsening symptoms or any other concerns. Scripts No Active Prescriptions or Reported Meds Disposition: 01 DISCHARGE HOME Condition: Stable Dilan Sánchez MD May 14, 2017 01:52
--- NOTE | 2017-05-14 01:52 | PD ---
HPI Chief Complaint: Injury Time Seen by Provider: 01:45 Travel History International Travel<30 days: No Contact w/Intl Traveler<30days: No Traveled to known affect area: No History of Present Illness HPI 21-year-old female here for evaluation of left hand pain. The patient reports that about 3 weeks ago while at work at [employer] her hand got caught between 2 pieces of equipment. She reports that she has not had time to have it evaluated and the pain has persisted despite taking Aleve. She denies any other injuries. Pain is 2 out of 10, worse with movement and palpation. No paresthesias. She is right-hand dominant. [facility] Past Medical History Diminished Hearing: No Psychiatric: No Immunizations Current: Yes Seizures: Yes (2009 LAST SEIZURE, STOPPED MEDS 2012) ?: Not LMP: 05/10/17 : 4 Para: 3 Miscarriage: 1 Past Surgical History Section: Yes (X3) Oral Surgery: Yes (WISDOM TEETH) Tonsillectomy: Yes Other Surgery: Yes Social History Alcohol Use: No Tobacco Use: Yes (5 CIGS DAILY) Substance Use: No Allergies-Medications (Allergen,Severity, Reaction): Coded Allergies: No Known Allergies (Verified , 05/14/17) Reported Meds & Prescriptions Reported Meds & Active Scripts Active No Active Prescriptions or Reported Medications Review of Systems Except as stated in HPI: all other systems reviewed are Neg Physical Exam Narrative GENERAL: Well-developed, well-nourished, comfortable, no apparent distress. SKIN: Focused skin assessment warm/dry. Dorsum of left hand over second MCP joint and second metacarpal there is slight ecchymosis with slight edema and tenderness. No skin breaks. CARDIOVASCULAR: Regular rate and rhythm. Bilateral distal radial pulses are brisk and equal. Normal capillary refill in left hand. RESPIRATORY: No accessory muscle use. Clear to auscultation. Breath sounds equal bilaterally. GASTROINTESTINAL: Abdomen soft, non-tender, nondistended. Hepatic and splenic margins not palpable. MUSCULOSKELETAL: Skin exam as above. Normal range of motion in extension and right hand. NEUROLOGICAL: Awake and alert. No obvious cranial nerve deficits. Motor grossly within normal limits. Normal speech. Normal sensation and left hand. PSYCHIATRIC: Appropriate mood and affect; insight and judgment normal. Data Data Last Documented VS Vital Signs Date Time Temp Pulse Resp B/P (MAP) Pulse Ox O2 Delivery O2 Flow Rate FiO2 05/14/17 01:47 18 100 Room Air 05/14/17 01:33 98.2 81 142/78 (99) Orders Orders Hand, Complete ([id number]) (05/14/17 ) MDM Medical Decision Making Medical Screen Exam Complete: Yes Emergency Medical Condition: Yes Differential Diagnosis Left hand contusion, left hand fracture Narrative Course Left hand x-ray: No acute fracture. Patient was made aware of x-ray findings. Left hand is neurovascularly intact. There are no skin breaks. She is stable for discharge home with outpatient follow-up with a primary care physician this week. She was informed on when to return to the emergency department. She verbalizes understanding and agreement with plan. Diagnosis Primary Impression: Contusion of left hand Qualified Codes: S60.222A - Contusion of left hand, initial encounter Referrals: Primary Care Physician 3 days Additional Instructions: Follow-up with a primary care physician this week. Continue taking ibuprofen for pain. Return to the emergency room if worsening symptoms or any other concerns. Scripts No Active Prescriptions or Reported Meds Disposition: 01 DISCHARGE HOME Condition: Stable Dilan Sánchez MD May 14, 2017 01:52
--- NOTE | 2017-05-14 03:17 | RADRPT ---
EXAM DATE/TIME: 05/14/2017 02:12 [place] COMPARISON: No previous studies available for comparison. INDICATIONS : Left hand pain. MEDICAL HISTORY : None. SURGICAL HISTORY : None. ENCOUNTER: Initial ACUITY: 3 weeks PAIN SCORE: 4/10 LOCATION: Left hand. FINDINGS: Three view examination of the left hand demonstrates no soft tissue swelling, dislocation, or fractur e. The carpal bones appear intact. The interphalangeal and metacarpophalangeal joints are intact. Bony mineralization is normal. CONCLUSION: No acute fracture. Nathen Cisneros MD on May 14, 2017 at 3:15 Board Certified Radiologist. This report was verified electronically.
[2017-05-14 03:30] VITALS: BP 138/74; PULSE 78; RESP 18; O2SAT 99
== END 2017-05-14 03:32 | disposition home or self-care (01) ==
LOC: PHED 01:31
DX: S60.222A Contusion of left hand, initial encounter (principal); W23.0XXA Caught, crushed, jammed, or pinched between moving objects, initial encounter; Y92.511 Restaurant or cafe as the place of occurrence of the external cause; Y99.0 Civilian activity done for income or pay
CPT/HCPCS: 73130; 99283

== ENCOUNTER 2017-12-14 02:42 | Emergency (ER) | payer BC ==
[~2017-12-14] VITALS: Ht 162.6 cm; Wt 47.2 kg
[2017-12-14 02:46] VITALS: BP 141/83; PULSE 70; RESP 18; TEMP 97.6; O2SAT 100; O2SAT 70
[2017-12-14] MEDS ORDERED: IBUPROFEN SUSP 100 MG/5 ML UDC PO ONE (03:15)
[2017-12-14] MEDS ORDERED: CEPH-460 PO (03:30)
--- NOTE | 2017-12-14 03:30 | PD ---
HPI Chief Complaint: Injury Time Seen by Provider: 03:13 Travel History International Travel<30 days: No Contact w/Intl Traveler<30days: No Traveled to known affect area: No History of Present Illness HPI 22-year-old female presents to the emergency department for complaint of 3 days of of right distal lateral thigh pain swelling and abrasion. Patient states 3 days ago she lost her balance and fell over her boyfriend and to avoid landing on him she adjusted her fall but instead hit the right lateral distal thigh upper leg area against a door. Patient was wearing sweatpants at the time. Patient immediately assessed the injury and identified a skin abrasion. Subsequently patient is noted bruising to the area patient states that she has been working in the leg is sore throughout her workday and she has contused it several times while at work. Patient states abrasion remains inflamed and tender but there is no drainage. Patient's had no ascending erythema and no fever chills. Patient has been keeping the site clean and dry and applying topical antibiotic. Soreness persists so decided to come to the emergency room for evaluation. Patient denies other injury. Patient's last tetanus booster was within 5 years. Patient has taken 2 doses of Tylenol without symptom relief. Patient has not attempted ibuprofen or applying ice. Last menstrual period was 12/07/17 and just finished 2 days ago and was normal for her. PFSH Past Medical History Narrative Medical Seizure Ab1 tonsillectomy tobacco use; nursing notes reviewed Diminished Hearing: No Psychiatric: No Immunizations Current: Yes Seizures: Yes (2009 LAST SEIZURE, STOPPED MEDS 2012) Tetanus Vaccination: < 5 Years Influenza Vaccination: Yes ?: Not LMP: 5-19-18 : 4 Para: 3 Miscarriage: 1 Past Surgical History Section: Yes (X3) Oral Surgery: Yes (WISDOM TEETH) Tonsillectomy: Yes Other Surgery: Yes Social History Alcohol Use: No Tobacco Use: Yes (1 PPD) Substance Use: No Allergies-Medications (Allergen,Severity, Reaction): Coded Allergies: No Known Allergies (Verified Adverse Reaction, Unknown, 12/14/17) Reported Meds & Prescriptions Reported Meds & Active Scripts Active No Active Prescriptions or Reported Medications Review of Systems Except as stated in HPI: all other systems reviewed are Neg General / Constitutional: No: Fever, Chills Musculoskeletal: Positive: Pain (Right lateral thigh), No: Myalgias, Arthralgias Skin: Positive Rash, Positive Other (Abrasion) Neurologic: No: Weakness Hematologic/Lymphatic: Positive: Easy Bruising Physical Exam Narrative GENERAL: Well-developed well-nourished female no acute distress no respiratory distress; GCS 15 SKIN: Warm and dry. HEAD: Normocephalic. EYES: No scleral icterus. No injection or drainage. NECK: Supple, trachea midline. No JVD or lymphadenopathy. CARDIOVASCULAR: Regular rate and rhythm without murmurs, gallops, or rubs. RESPIRATORY: Breath sounds equal bilaterally. No accessory muscle use. GASTROINTESTINAL: Abdomen soft, non-tender, nondistended. MUSCULOSKELETAL: No cyanosis, or edema. Attention right lower extremity distal right lateral thigh area of ecchymosis with 7.5 cm linear abrasion with some focal mild erythema no induration no increased warmth no drainage; extremity demonstrates intact range of motion and hip flexion knee flexion extension and ankle flexion and dorsi plantar flexion internal and external rotation inversion eversion dorsalis pedis pulses 2+ to palpation. Knee exam is unremarkable with provocative testing and no joint effusion is identified. BACK: Nontender without obvious deformity. No CVA tenderness. Data Data Last Documented VS Vital Signs Date Time Temp Pulse Resp B/P (MAP) Pulse Ox O2 Delivery O2 Flow Rate FiO2 12/14/17 02:46 97.6 70 18 141/83 (102) 100 Orders Orders Ibuprofen Liq (Motrin Liq) (12/14/17 03:15) Ed Discharge Order (12/14/17 03:20) [facility] Medical Decision Making Medical Screen Exam Complete: Yes Emergency Medical Condition: Yes Medical Record Reviewed: Yes Differential Diagnosis Contusion abrasion cellulitis hematoma fracture Narrative Course Patient has evidence of a contusion with ecchymosis and superficial abrasion to the right lateral distal thigh/upper leg without purulent drainage mild induration and erythema; extremities otherwise neurovascularly tendon intact without focality or abnormality on exam. Patient given weight-based ibuprofen for symptom relief patient is encouraged to continue keeping site clean and dry and applying topical antibiotic ointment. Patient is encouraged to keep site open to the air when at home and not cover the area unless she is sleeping or wearing closed and out and about. Also may apply ice pack intermittently to area and recommend ongoing use of ibuprofen for pain associated with inflammation. Patient will be given short course of oral antibiotic. Diagnosis Primary Impression: Abrasion of right leg Qualified Codes: S80.811A - Abrasion, right lower leg, initial encounter Additional Impression: Contusion of right lower leg, initial encounter Referrals: Primary Care Physician call for appointment Patient Instructions: General Instructions Additional Instructions: Continue keeping site clean and dry washing the area with dialysis tube drying well applying topical antibiotic Complete course of antibiotic as prescribed Follow up with your primary care provider Monitor temperature for fever take acetaminophen/Tylenol as often as every 4-6 hours as needed for fever 100.4F or greater May take ibuprofen/Advil/Motrin 400 mg to 600 mg as often as every 6 hours for pain Associates inflammation or may use children's ibuprofen take 500 mg every 6 hours for pain associated with inflammation or for fever 100.4F or greater Apply ice pack intermittently for the first 12-24 hours Elevate leg Return to the emergency department for any concerns or change in condition Med/Other Pt SpecificInfo: Prescription(s) given Scripts Cephalexin (Keflex) 500 Mg Capsule 500 MG PO BID for Infection, #10 CAP 0 Refills Prov: Charlette Boggs MD 12/14/17 Disposition: DISCHARGE HOME Condition: Stable Charlette Boggs MD December 14, 2017 03:30
== END 2017-12-14 03:46 | disposition home or self-care (01) ==
LOC: PHED 02:42
DX: S70.311A Abrasion, right thigh, initial encounter (principal); S80.11XA Contusion of right lower leg, initial encounter; W01.198A Fall on same level from slipping, tripping and stumbling with subsequent striking against other object, initial encounter; F17.200 Nicotine dependence, unspecified, uncomplicated
CPT/HCPCS: 99283